=== PATIENT | male | born 1990 | race Caucasian/White ===

== ENCOUNTER 2020-01-31 05:13 | Emergency (ER) | payer SELFPAY ==
[~2020-01-31] VITALS: Ht 167.6 cm; Wt 75.0 kg
[2020-01-31 05:15] VITALS: BP 110/64
[2020-01-31] MEDS ORDERED: BACITRACIN ZINC OINT UDPKT TOP ONE (06:45)
[2020-01-31] MEDS ORDERED: IBUPROFEN 600MG TABLET PO ONE (06:45)
[2020-01-31] MEDS ORDERED: AMOXICILLIN/POTASSIUM CLAVULANATE 875/125MG TAB PO ONE (06:45)
== END 2020-01-31 07:39 | disposition home or self-care (01) ==
LOC: ER 05:13
DX: S71.152A Open bite, left thigh, initial encounter (principal); S51.852A Open bite of left forearm, initial encounter; W54.0XXA Bitten by dog, initial encounter; Y93.89 Activity, other specified; Y92.89 Other specified places as the place of occurrence of the external cause; Y99.8 Other external cause status
CPT/HCPCS: 99284